=== PATIENT | male | born 1985 | race African-American/Black ===

== ENCOUNTER 2023-10-14 19:24 | Emergency (ER) | payer BC, OTHER ==
--- NOTE | 2023-10-14 20:14 | ED ---
General Adult HPI - General Chief complaint: Back Pain/Injury Stated complaint: [facility], bodily injury Time Seen by Provider: 10/14/23 19:40 Source: patient, RN notes reviewed Mode of arrival: ambulatory Limitations: no limitations - History of Present Illness Initial comments: This is a 38 year old male who presents to the chief complaint work-related injury. Patient states that he was by a metal moving boxes a forklift pushed into a box causing the patient to fall backwards or to table Back. Patient denies hitting his head or loss of conscious at the time of this fall. Currently, patient states that he has anterior chest wall tenderness in addition to cervical, pain. Patient denies logical deficits, shortness of breath, chest pain or pressure, palpitations, dizziness lightheadedness. He denies other injuries at the time of the event. No other acute complaints at this time. - Related Data Allergies Allergy/AdvReac Type Severity Reaction Status Date / Time No Known Allergies Allergy Verified 10/14/23 19:38 Review of Systems ROS Statement: Those systems with pertinent positive or pertinent negative responses have been documented in the HPI. ROS Other: All systems not noted in ROS Statement are negative. Past Medical History Past Medical History: No Reported History History of Any Multi-Drug Resistant Organisms: None Reported Past Surgical History: No Surgical Hx Reported Past Psychological History: No Psychological Hx Reported Smoking Status: Former smoker Past Alcohol Use History: Occasional Past Drug Use History: None Reported General Exam Limitations: no limitations General appearance: alert, in no apparent distress Head exam: Present: atraumatic, normocephalic, normal inspection Eye exam: Present: normal appearance, PERRL, EOMI. Absent: scleral icterus, conjunctival injection, periorbital swelling ENT exam: Present: normal exam, mucous membranes moist Neck exam: Present: normal inspection, tenderness (posterior), full ROM (pain with rotation). Absent: meningismus, lymphadenopathy Respiratory exam: Present: normal lung sounds bilaterally, chest wall tenderness (anterior, no signs of erythema, no crepitus ). Absent: respiratory distress, wheezes, rales, rhonchi, stridor Cardiovascular Exam: Present: regular rate, normal rhythm, normal heart sounds. Absent: systolic murmur, diastolic murmur, rubs, gallop, clicks GI/Abdominal exam: Present: soft, normal bowel sounds. Absent: distended, tenderness, guarding, rebound, rigid Extremities exam: Present: normal inspection, full ROM, normal capillary refill. Absent: tenderness, pedal edema, joint swelling, calf tenderness Back exam: Present: normal inspection Neurological exam: Present: alert, oriented X3, CN II-XII intact Psychiatric exam: Present: normal affect, normal mood Skin exam: Present: warm, dry, intact, normal color. Absent: rash Course Vital Signs 10/14/23 10/14/23 19:34 22:27 Temperature 97.9 F 98.1 F Pulse Rate 95 79 Respiratory 18 16 Rate Blood Pressure 149/97 139/92 O2 Sat by Pulse 97 100 Oximetry Medical Decision Making - Medical Decision Making Was pt. sent in by a medical professional or institution (, [facility], [employer], urgent care, hospital, or intermediate...) When possible be specific @ -No Did you speak to anyone other than the patient for history (EMS, parent, family, police, friend...)? What history was obtained from this source @ -No Did you review nursing and triage notes (agree or disagree)? Why? @ -I reviewed and agree with nursing and triage notes Were old charts reviewed (outside hosp., previous admission, EMS record, old EKG, old radiological studies, urgent care reports/EKG's, intermediate records)? Report findings @ -No old charts were reviewed Differential Diagnosis (chest pain, altered mental status, abdominal pain women, abdominal pain men, vaginal bleeding, weakness, fever, dyspnea, syncope, headache, dizziness, GI bleed, back pain, seizure, CVA, palpatations, mental health, musculoskeletal)? @ -Differential Musculoskeletal Muscular strain, contusion, ligament sprain, fracture, arthritis, septic arthritis, bursitis, cellulitis, muscle spasm, nerve compression, DVT, arterial occlusion, herpes zoster, electrolyte abnormality, tumor.... This is not meant to be in all inclusive list EKG interpreted by me (3pts min.). @ -none X-rays interpreted by me (1pt min.). @ -cervical spine x-ray no fracture dislocation, vaginal changes of the cervical spine. xray of the chest and of the right ribs with PA chest no acute osseous pathology. CT interpreted by me (1pt min.). @ -None done U/S interpreted by me (1pt. min.). @ -None done What testing was considered but not performed or refused? (CT, X-rays, U/S, labs)? Why? @ -None What meds were considered but not given or refused? Why? @ -None Did you discuss the management of the patient with other professionals (professionals i.e. , PA, E[employer]IAN [employer], lab, RT, psych nurse, older adult social work specialist, divorce lawyer, teacher, landcare officer, disease case manager)? Give summary @ -No Was smoking cessation discussed for >3mins.? @ -No Was critical care preformed (if so, how long)? @ -No Were there social determinants of health that impacted care today? How? (Ho melessness, low income, unemployed, alcoholism, drug addiction, transportation, low edu. Level, literacy, decrease access to med. care, long term, rehab)? @ -No Was there de-escalation of care discussed even if they declined (Discuss DNR or withdrawal of care, Hospice)? DNR status @ -No What co-morbidities impacted this encounter? (DM, HTN, Smoking, COPD, CAD, Cancer, CVA, ARF, Chemo, Hep., AIDS, mental health diagnosis, sleep apnea, morbid obesity)? @ -None Was patient admitted / discharged? Hospital course, mention meds given and route, prescriptions, significant lab abnormalities, going to OR and other pertinent info. @ -Discharge. 38-year-old male with a work accident. On examination there are no signs of obvious chest wall deformity, no crepitus on examination equal breath sounds bilaterally no adventitious sounds heard. No acute process. Patient is resting comfortably on room air. He has pain with palpation to the anterior chest wall. Patient also has pain to the cervical neck with range of motion. He is neuro logically intact. Patient provided with pain medication pending results of x-rays. X-rays negative for acute process. Recommend the patient continue Tylenol Motrin at home for symptomatic relief. All questions answered at bedside and strict return parameters discussed with the patient he is verbalized understanding. Case discussed with Dr. Seo. Undiagnosed new problem with uncertain prognosis? @ -No Drug Therapy requiring intensive monitoring for toxicity (Heparin, Nitro, Insulin, Cardizem)? @ -No Were any procedures done? @ -No Diagnosis/symptom? @ -Work-related accident, anterior chest wall pain, cervical neck pain Acute, or Chronic, or Acute on Chronic? @ -Acute Uncomplicated (without systemic symptoms) or Complicated (systemic symptoms)? @ -uncomplicated Side effects of treatment? @ -No Exacerbation, Progression, or Severe Exacerbation? @ -No Poses a threat to life or bodily function? How? (Chest pain, [place], [place], pneumonia, PE, COPD, DKA, ARF, appy, cholecystitis, CVA, Diverticulitis, Homicidal, Suicidal, threat to staff... and all critical care pts) @ -No Disposition Clinical Impression: Work related injury, Anterior chest wall pain, Cervical pain (neck) Disposition: HOME SELF-CARE Condition: Good Instructions (If sedation given, give patient instructions): Chest Pain (DC) Additional Instructions: Return to the emergency department for any new or worsening symptoms. Take Tylenol Motrin at home as needed for symptomatic relief. Recommend follow-up with your primary care provider next week for further evaluation. Is patient prescribed a controlled substance at d/c from ED?: No Referrals: Saul Julian [Primary Care Provider] - 1-2 days Time of Disposition: 21:56
[2023-10-14] MEDS: ORPHENADRINE 30 MG/ML 2 ML VIAL IM STA (20:36)
--- NOTE | 2023-10-14 21:37 | XR ---
EXAMINATION TYPE: XR ribs RT w pa chest x-ray DATE OF EXAM: 10/14/2023 8:51 PM CLINICAL INDICATION:Male, 38 years old with history of injury, pain; [facility] COMPARISON: TECHNIQUE: XR ribs RT w pa chest x-ray; Frontal and oblique views of the ribs with frontal chest radi ograph. FINDINGS: The ribs have a normal appearance. No evidence of fracture. Overall, the lungs are clear. The cardiac silhouette is normal in size. The remaining osseous structures are intact. IMPRESSION: No acute osseous pathology.
--- NOTE | 2023-10-14 21:39 | XR ---
EXAMINATION TYPE: XR cervical spine comp DATE OF EXAM: 10/14/2023 8:51 PM CLINICAL INDICATION:Male, 38 years old with history of injury, pain; [facility] COMPARISON: TECHNIQUE: The cervical spine was imaged in frontal, lateral, odontoid and bilateral oblique. FINDINGS: The osseous structures show normal alignment without evidence of an acute fracture. No significant ve rtebral body osteophytes or facet joint arthropathy. The intervertebral disk spaces are preserved. Pe dicles are intact. Soft tissues are within normal limits. The odontoid appears intact. IMPRESSION: 1. No fracture or dislocation. 2. No degenerative changes of the cervical spine.
[2023-10-14 22:27] VITALS: BP 139/92; PULSE 79; RESP 16; TEMP 98.1
== END 2023-10-14 22:28 | disposition home or self-care (01) ==
LOC: EC 19:24
DX: M50.920 Unspecified cervical disc disorder, mid-cervical region, unspecified level (principal); R07.89 Other chest pain; Z87.891 Personal history of nicotine dependence; X50.0XXA Overexertion from strenuous movement or load, initial encounter; Y99.0 Civilian activity done for income or pay
CPT/HCPCS: 71101; 72050; 99283; 96372; J2360

== ENCOUNTER → 2023-10-16 | Outpatient (CLI) | payer OTHER ==
--- NOTE | 2023-10-16 16:05 | XR ---
Right foot HISTORY: Pain following trauma COMPARISON: None TECHNIQUE: 3 views the right foot were obtained. FINDINGS: There is no fracture, dislocation or focal intraosseous abnormality. There is mild hallux valgus defo rmity. There are no soft tissue abnormalities. IMPRESSION: 1. No acute trauma. 2. Mild hallux valgus formation
== END | disposition home or self-care (01) ==
LOC: RADXRMAIN 15:32
PROVIDERS: ATTEND Emergency Medicine
DX: M20.11 Hallux valgus (acquired), right foot (principal); S90.31XA Contusion of right foot, initial encounter

== ENCOUNTER → 2023-10-27 | Outpatient (CLI) | payer OTHER ==
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
== END | disposition home or self-care (01) ==
LOC: RADXRMAIN 12:22
PROVIDERS: ATTEND Emergency Medicine
DX: S16.1XXD Strain of muscle, fascia and tendon at neck level, subsequent encounter (principal); S30.0XXD Contusion of lower back and pelvis, subsequent encounter
CPT/HCPCS: 72125

== ENCOUNTER → 2023-11-17 | Outpatient (CLI) | payer OTHER ==
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
== END | disposition home or self-care (01) ==
LOC: RADXRMAIN 10:25
PROVIDERS: ATTEND Emergency Medicine
DX: S16.1XXD Strain of muscle, fascia and tendon at neck level, subsequent encounter (principal); S30.0XXD Contusion of lower back and pelvis, subsequent encounter; M51.36 Other intervertebral disc degeneration, lumbar region; M47.816 Spondylosis without myelopathy or radiculopathy, lumbar region; M99.73 Connective tissue and disc stenosis of intervertebral foramina of lumbar region; Y99.9 Unspecified external cause status
CPT/HCPCS: 72100